=== PATIENT | male | born 1965 | race Caucasian/White ===

== ENCOUNTER → 2020-03-26 08:58 | Outpatient (BNVA) | payer MEDICAID, SELFPAY | PROVIDERS: PCP Internal Medicine; Referring Provider Internal Medicine; Visit Provider Orthopaedic Surgery | DX: M75.41 Impingement syndrome of right shoulder (principal) | CPT/HCPCS: 20610; 99212; J1100 ==

== ENCOUNTER 2020-05-06 09:26 | Outpatient (REF) | payer MEDICAID, SELFPAY ==
--- NOTE | 2020-05-06 09:26 | XR_ITS ---
EXAMINATION: XR ELBOW, LEFT CLINICAL INFORMATION: Left elbow pain COMPARISON: None TECHNIQUE: AP, lateral, and oblique views of the left elbow. FINDINGS: No acute fractures identified. No elbow effusion is seen. Patient is status post instrumentation of what appeared to be a proximal ulnar fracture involving the olecranon. There is some soft tissue swelling seen about the olecranon and proximal ulna. XR/XR elbow LT min 3V IMPRESSION: 1. No acute fracture or effusion of the left elbow. Status post previous instrumentation for fracture. 2. Soft tissue prominence about the olecranon with the appearance of possible olecranon bursitis.
== END 2020-05-06 09:27 | disposition home or self-care (01) ==
LOC: HO.HOSX 09:26
PROVIDERS: Visit Provider Physician Assistant
DX: M70.22 Olecranon bursitis, left elbow (principal)
CPT/HCPCS: 73080; 99212

== ENCOUNTER → 2020-05-25 08:58 | Outpatient (BNVA) | payer MEDICAID, SELFPAY | PROVIDERS: PCP Student in an Organized Health Care Education/Training Program; Visit Provider Physician Assistant | DX: M70.32 Other bursitis of elbow, left elbow (principal); F17.210 Nicotine dependence, cigarettes, uncomplicated; Z96.9 Presence of functional implant, unspecified | CPT/HCPCS: 99212 ==

== ENCOUNTER 2020-06-14 06:02 | Day surgery (SDC) | payer MEDICAID, SELFPAY ==
[2020-06-07 17:04] VITALS: BMI 28.7
--- NOTE | 2020-06-10 15:44 | HO.ANESPROP2 ---
Documented by User: Ethel Almonte 06/10/20 15:45 HPI - Anesthesia Eval Consult details Narrative: 55yo M for Removal Orthopedic Hardware Elbow, Left PMFSH Past Medical History Medical History Arthritis Hypertension Internal derangement of right shoulder Nephrolithiasis Paget's bone disease Partial nontraumatic tear of right rotator cuff Shoulder impingement syndrome Family History Family History Father Melanoma Mother Diabetes Surgical History Surgical History History of arthroscopy of left knee History of elbow surgery History of lithotripsy Social History Social History Alcohol intake: former Smoking Status: Current every day smoker Tobacco Type: Cigarette Packs Per Day: 1 Cigarettes Per Day: 20.0 Years Smoked: 20 Smoked in Last 30 Days: Yes Date Education Initiated: 06/07/20 Use of substances other than those prescribed or required for medical reasons: No Advance Directives: No Advance Directives Information Provided: No Advance Directives on File: No Recently lost weight without trying: No Current occupational status: employed 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 Meds Allergies Allergy/AdvReac Type Severity Reaction Status Date / Time Clindamycin HCl Allergy Severe Rash Uncoded 06/07/20 17:02 penicllin Allergy Severe Rash Uncoded 06/07/20 17:02 Home Medications Medication Instructions Recorded Confirmed Type lisinopril 20 mg tablet 20 mg PO DAILY 03/25/20 06/07/20 History acetaminophen [Tylenol] 650 mg PO Q6H PRN 06/07/20 06/07/20 History Exam Exam Date and Time: June 10, 2020 1544 Height,Weight and Vital Signs: Height 5 ft 10 in Weight 90.718 kg Assessment and Plan Assessment Anesthesia Assessment: Chart Reviewed Documented by User: Suhail Street MD 06/14/20 07:50 PMF Past Medical History Medical History Arthritis Hypertension Internal derangement of right shoulder Nephrolithiasis Paget's bone disease Partial nontraumatic tear of right rotator cuff Shoulder impingement syndrome Family History Family History Father Melanoma Mother Diabetes Surgical History Surgical History History of arthroscopy of left knee History of elbow surgery History of lithotripsy Social History Social History Alcohol intake: former Smoking Status: Current every day smoker Tobacco Type: Cigarette Packs Per Day: 1 Cigarettes Per Day: 20.0 Years Smoked: 20 Smoked in Last 30 Days: Yes Date Education Initiated: 06/07/20 Use of substances other than those prescribed or required for medical reasons: No Advance Directives: No Advance Directives Information Provided: No Advance Directives on File: No Recently lost weight without trying: No Current occupational status: employed 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 Meds Allergies Allergy/AdvReac Type Severity Reaction Status Date / Time Clindamycin HCl Allergy Severe Rash Uncoded 06/07/20 17:02 penicllin Allergy Severe Rash Uncoded 06/07/20 17:02 Home Medications Medication Instructions Recorded Confirmed Type lisinopril 20 mg tablet 20 mg PO DAILY 03/25/20 06/07/20 History acetaminophen [Tylenol] 650 mg PO Q6H PRN 06/07/20 06/07/20 History Exam Airway Mallampati Class: III TM Dist: >3cm Neck ROM: Full Loose/Missing/Broken Teeth: Yes (5 upper teeth ) Heart: RRR Lungs: NL Other: AO Assessment and Plan Assessment Anesthesia Assessment: Anesthesia Plan Discussed and Chart Reviewed Final Anesthetic Review NPO: Yes ASA Class: II Final Preanesthetic Review: No Changes in Pt Med Stat, Meds/Allgs Chart Reviewed, Consent Obtained/Reviewed and Anes Risks/Benef Reviewed Patient Risk: Low Procedure Risk: Low Anesthetic Plan Anesthetic Plan: GA and Regional Block Disposition: Standard PACU
[2020-06-14] VITALS (7 sets, daily range): BP systolic 97–123; BP diastolic 58–73; PULSE 69–87; RESP 12–16; TEMP 36.6; O2SAT 93–98
[2020-06-14] MEDS: ceFAZolin Sodium/Dextrose,Iso 2 GM/50 ML PIGGYBACK IV (06:37)
[2020-06-14] MEDS: Lactated Ringers 1,000 ML 100 ML IVCONT (06:37)
--- NOTE | 2020-06-14 07:31 | FL_ITS ---
EXAMINATION: XR FLUOROSCOPY WITH IMAGES CLINICAL INFORMATION: Hardware removal left elbow COMPARISON: Previous x-ray 05/06/2020 TECHNIQUE: Fluoroscopy performed by Dr. Brock Instrum. Fluoroscopy time: 1.3 seconds DAP: 2062 u davis per centimeter squared Images: 1 FINDINGS: Single lateral view of the elbow. Limited due to light film technique and overlapping structures. No orthopedic hardware seen. FL/FL guidance in OR IMPRESSION: Fluoroscopy guidance for hardware removal
--- NOTE | 2020-06-14 08:03 | MHC.SHP ---
Pre-Procedural Eval Section A The patient is an INPATIENT: No Changes since office visit: No Cold of Flu in the past 2 weeks, No New Medical Problems, No Changes in Medication and No Patient answered all questions The History & Physical has been completed within 30 days and I have reviewed it.: Yes Section B Chief Complaint: Presense of functional implant Allergies: Allergies Allergy/AdvReac Type Severity Reaction Status Date / Time Clindamycin HCl Allergy Severe Rash Uncoded 06/07/20 17:02 penicllin Allergy Severe Rash Uncoded 06/07/20 17:02 Plan I have reviewed the history and physical and performed a pertinent physical examination on my patient. No changes have occurred unless specified.
--- NOTE | 2020-06-14 08:33 | PM.PRCOR ---
Brief Operative Note Date of procedure: 06/14/20 Pre-op diagnosis: painful hardware left elbow Post-op diagnosis: same Procedure: REMOVAL HARWARE LEFT ELBOW Surgeon: Delmy Banks Estimated blood loss (mL): 0 Condition: stable Disposition: PACU
--- NOTE | 2020-06-14 09:40 | OP_ITS ---
SURGEON: Delmy Banks MD PREOPERATIVE DIAGNOSIS: Painful hardware of left elbow/olecranon. POSTOPERATIVE DIAGNOSIS: Painful hardware of left elbow/olecranon. PROCEDURE PERFORMED: Removal of hardware of left olecranon. ESTIMATED BLOOD LOSS: COMPLICATIONS: ANESTHESIA: ASSISTANTS: SPECIMENS: CLINICAL NOTE: This gentleman has had ongoing problems with his elbow for many years. He had olecranon fracture that was treated many years ago elsewhere. He actually developed a nonunion. He has had hardware that has been partially removed and left some, and he has had recurrent olecranon bursitis. Therefore, after explaining the risks, benefits, alternatives and answering all his questions, it was mutually agreed upon to carry out the following procedure. DESCRIPTION OF PROCEDURE: Under a general anesthetic, the patient was placed in the supine position in the operating table. Pneumatic tourniquet cuff was placed around the upper left arm but was not inflated. The left arm was then prepped and draped in standard fashion. Surgical time-out was then performed. The patient was identified, procedure confirmed, site confirmed. Medical analogy and history reviewed. Preoperative antibiotics given. Standard DVT prophylaxis in place. All other items were discussed and agreed upon. Following the old incision, it was taken down through subcutaneous tissues. Hemostasis was achieved along the way using electrocautery. It was divided down onto the subcutaneous port of the olecranon. The [id number] wire was identified as well as the two ends. It was dissected to the transverse portion through the bone and then the wire was successfully removed. Following this, the retained small fragment was found and the soft tissues was then removed. The mini C-arm was used just to confirm all the hardware is gone and we proceeded the closure. Wound was irrigated. The deep tissue approximated using interrupted 2-0 Dexon. Skin approximated using interrupted 2-0 Dexon. Skin was closed with vincenzo. Sterile dressing was then applied. The patient's anesthesia was then reversed and transferred supine to the room bed and taken to the recovery room in good condition. Intraoperatively, there was no blood loss. No complications. COMMERCIAL PLUMBER: LEAH Bauer. Delmy Banks MD KKI/ANGELINAL / [id number]
--- NOTE | 2020-06-14 09:59 | HO.POSTANES ---
Post Anesthesia Evaluation Post Anesthesia Evaluation Vital Signs: Vital Signs Temp Pulse Resp BP Pulse Ox 06/14/20 09:36 87 16 100/73 95 06/14/20 09:22 72 16 110/65 95 06/14/20 09:12 75 16 107/66 94 06/14/20 09:01 84 16 103/68 94 06/14/20 08:56 75 16 97/60 93 06/14/20 08:51 98 F 86 12 100/58 L 97 06/14/20 06:27 97.9 F 69 16 123/72 98 Anesthesia: General LMA Mental Status: Awake Pain Control: Satisfactory Nausea/Vomiting: None Hydration: Adequate Anesthesia-Related Issues: No Anes. Related Issues
== END 2020-06-14 10:11 | disposition home or self-care (01) ==
PROVIDERS: PCP Internal Medicine; Visit Provider Orthopaedic Surgery
PROC: (CPT 20680; principal; 2020-06-14 07:50)
DX: T84.84XA Pain due to internal orthopedic prosthetic devices, implants and grafts, initial encounter (principal); M25.422 Effusion, left elbow; M70.22 Olecranon bursitis, left elbow; M88.9 Osteitis deformans of unspecified bone; I10 Essential (primary) hypertension; F17.210 Nicotine dependence, cigarettes, uncomplicated
CPT/HCPCS: 20680; J0690; J1100; J2250; J2405; J3010

== ENCOUNTER → 2020-06-25 10:30 | Outpatient (BNVA) | payer MEDICAID, SELFPAY | PROVIDERS: PCP Internal Medicine; Visit Provider Physician Assistant | DX: Z98.890 Other specified postprocedural states (principal) | CPT/HCPCS: 99212 ==

== ENCOUNTER → 2020-07-05 13:11 | Outpatient (BNVA) | payer MEDICAID, SELFPAY | PROVIDERS: PCP Internal Medicine; Visit Provider Physician Assistant | DX: M70.22 Olecranon bursitis, left elbow (principal) | CPT/HCPCS: 99212 ==

== ENCOUNTER 2020-09-13 09:21 | Outpatient (REF) | payer MEDICAID, SELFPAY ==
--- NOTE | ~2020-09-13 | US_ITS ---
EXAMINATION: US RETROPERITONEAL LIMITED (RENAL ONLY) CLINICAL INFORMATION: Nephrolithiasis. COMPARISON: Ultrasound renal swelling 08/14/2019 and 08/05/2018 TECHNIQUE: Real-time imaging of the kidneys. FINDINGS: RIGHT KIDNEY: 11.1 x 6.1 x 5.2 cm (SAG x AP x TRV). The kidney is normal in size, contour, and echogenicity. Renal cortical thickness is normal. There is mild hydronephrosis. There are 2 stones measuring 3 mm in the mid lower pole. There are 2 small cysts measuring 5 mm and 4 mm in the lower and midpole. No renal mass. LEFT KIDNEY: 12.2 x 5.9 x 5.8 cm (SAG x AP x TRV). The kidney is normal in size, contour, and echogenicity. Renal cortical thickness is normal. There is moderate left hydronephrosis. There is dilatation of the visualized left proximal ureter. There are 3 stones in the mid and lower pole measuring 2 mm. No renal mass. Bilateral ureteral jets are seen in the bladder. US/US renal BI IMPRESSION: Bilateral hydronephrosis, left greater than right. This is increased from August 2019 exam. Bilateral renal stones. Small right renal cysts.
== END 2020-09-13 09:22 | disposition home or self-care (01) ==
LOC: HO.US 09:21
PROVIDERS: PCP Internal Medicine; Visit Provider Urology
DX: N20.0 Calculus of kidney (principal)
CPT/HCPCS: 76775

== ENCOUNTER → 2020-09-16 15:10 | Outpatient (BNVA) | payer MEDICAID, SELFPAY | PROVIDERS: PCP Internal Medicine; Visit Provider Urology ==

== ENCOUNTER 2022-07-25 07:34 | Outpatient (REF) | payer MEDICAID, SELFPAY ==
--- NOTE | ~2022-07-25 | US_ITS ---
EXAMINATION: US RETROPERITONEAL LIMITED (RENAL ONLY) CLINICAL INFORMATION: Calculus of kidney. COMPARISON: Ultrasound retroperitoneal limited (renal only) 09/13/2020 and 08/14/2019. TECHNIQUE: Real-time imaging of the kidneys. FINDINGS: RIGHT KIDNEY: 10.6 x 6.2 x 5.2 cm (SAG x AP x TRV). The kidney is normal in size, contour, and echogenicity. Renal cortical thickness is normal. There is mild right-sided hydronephrosis present with a prominent proximal ureter seen measuring 5 mm. There are nonobstructing renal calculi seen measuring 2 mm at the lower pole and 4 mm in the mid kidney. Some benign subcentimeter cysts are present which need no additional imaging or follow up. LEFT KIDNEY: 11.8 x 6.1 x 5.1 cm (SAG x AP x TRV). The kidney is normal in size, contour, and echogenicity. Renal cortical thickness is normal. A benign subcentimeter lower pole cyst is present which needs no additional imaging or follow up. There are nonobstructing mid and lower pole calculi seen measuring 4 and 3 mm respectively. No left-sided hydronephrosis. BLADDER: Bilateral ureteral jets are demonstrated. US/US renal BI IMPRESSION: 1. Mild right-sided hydronephrosis with prominent proximal ureter. 2. Bilateral nonobstructing renal calculi.
== END 2022-07-25 07:35 | disposition home or self-care (01) ==
LOC: HO.US 07:34
PROVIDERS: PCP Internal Medicine; Visit Provider Urology
DX: N20.0 Calculus of kidney (principal)
CPT/HCPCS: 76775

== ENCOUNTER → 2022-08-15 15:05 | Outpatient (BNVA) | payer MEDICAID, SELFPAY | PROVIDERS: PCP Internal Medicine; Visit Provider Urology | DX: N20.0 Calculus of kidney (principal) | CPT/HCPCS: 99212 ==

== ENCOUNTER → 2022-09-11 07:49 | Outpatient (BNVA) | payer MEDICAID, SELFPAY | PROVIDERS: PCP Internal Medicine; Referring Provider Internal Medicine; Visit Provider Physician Assistant | DX: Z12.11 Encounter for screening for malignant neoplasm of colon (principal) | CPT/HCPCS: 99202 ==

== ENCOUNTER 2023-01-26 07:25 | Outpatient (REF) | payer MEDICAID, SELFPAY ==
--- NOTE | ~2023-01-26 | XR_ITS ---
EXAMINATION: XR HAND, RIGHT CLINICAL INFORMATION: Pain. COMPARISON: None available. TECHNIQUE: PA, lateral, and oblique views of the right hand. FINDINGS: The bones and soft tissues are normal. No fracture. Alignment is anatomic. Joint spaces are maintained. No erosions or soft tissue calcifications. XR/XR hand RT min 3V IMPRESSION: Normal right hand.
--- NOTE | ~2023-01-26 | XR_ITS ---
EXAMINATION: XR KNEE, RIGHT CLINICAL INFORMATION: Pain. COMPARISON: None available. TECHNIQUE: 3 views of the right knee. FINDINGS: The bone mineralization is normal. There is mild medial knee degenerative change with mild loss of joint space and mild osteophyte formation. There is no fracture. There is no joint effusion. The soft tissues are unremarkable. XR/XR knee RT 3V IMPRESSION: Mild medial knee degenerative change. No acute osseous abnormality or joint effusion.
--- NOTE | ~2023-01-26 | XR_ITS ---
EXAMINATION: XR SHOULDER, LEFT CLINICAL INFORMATION: Pain. COMPARISON: Radiographs dated 02/11/2018. TECHNIQUE: AP external rotation, Grashey, scapular Y, and axillary views of the left shoulder. FINDINGS: Bony alignment and mineralization are normal. The glenohumeral joint is intact. There is interim appearance of a tiny loose body or minimal avulsion fragment at the lower left glenoid margin. The acromioclavicular and coracoclavicular intervals are normal. No dislocation is seen. There is no soft tissue calcification or foreign body. No left pneumothorax is seen. XR/XR shoulder LT min 2V IMPRESSION: 1. A tiny loose body or minimal avulsion fragment is newly seen adjacent to the lower left glenoid margin. 2. No dislocation is seen.
--- NOTE | ~2023-01-26 | XR_ITS ---
EXAMINATION: XR KNEE, LEFT CLINICAL INFORMATION: Chronic pain. COMPARISON: Radiographs dated 06/06/2017. TECHNIQUE: AP and lateral views of the left knee. FINDINGS: Bony alignment and mineralization are normal. The lateral, medial and patellofemoral joint space compartment are well-maintained. There is mild peripheral osteophyte formation of the patellofemoral compartment. There is no fracture, dislocation or joint effusion. No foreign body is seen. There are atherosclerotic calcifications. XR/XR knee LT 2V IMPRESSION: 1. No fracture, dislocation or joint effusion is seen. 2. There is mild osteoarthritic change of the left patellofemoral compartment.
== END 2023-01-26 07:26 | disposition home or self-care (01) ==
LOC: HO.XRAY 07:25
PROVIDERS: PCP Internal Medicine; Visit Provider Internal Medicine
DX: M25.562 Pain in left knee (principal); M25.561 Pain in right knee; M25.512 Pain in left shoulder; M79.641 Pain in right hand; G89.29 Other chronic pain
CPT/HCPCS: 73030; 73130; 73560; 73562

== ENCOUNTER 2023-01-29 09:44 | Outpatient (REF) | payer MEDICAID, SELFPAY ==
--- NOTE | ~2023-01-29 | US_ITS ---
EXAMINATION: US RETROPERITONEAL LIMITED (RENAL ONLY) CLINICAL INFORMATION: Calculus of kidney. COMPARISON: Ultrasound retroperitoneal limited (renal only) 07/25/2022 and 09/13/2020. TECHNIQUE: Real-time imaging of the kidneys. Limited visualization due to bowel gas. FINDINGS: RIGHT KIDNEY: 11.4 x 7.0 x 5.1 cm (SAG x AP x TRV). Multiple renal calculi, largest 4 are midpole and each measures 0.4 cm. Mild right hydronephrosis. There is a 0.7 cm lower pole cyst with benign features. There is no indication for follow up imaging. Renal cortical thickness is normal. Limited visualization. LEFT KIDNEY: 12.1 x 6.1 x 4.7 cm (SAG x AP x TRV). Multiple renal calculi, largest midpole 0.5 cm. Mild left hydronephrosis. Lateral lower pole 0.4 cm cyst. There is no indication for follow up imaging. Renal cortical thickness is normal. Limited visualization. ADDITIONAL FINDINGS: Bilateral ureteral jets were identified on limited views of the bladder. US/US renal BI IMPRESSION: Mild bilateral hydronephrosis. Multiple bilateral renal calculi. Bilateral ureteral jets were identified on limited views of the bladder..
== END 2023-01-29 09:45 | disposition home or self-care (01) ==
LOC: HO.US 09:44
PROVIDERS: PCP Internal Medicine; Visit Provider Urology
DX: N20.0 Calculus of kidney (principal)
CPT/HCPCS: 76775

== ENCOUNTER 2023-02-23 08:28 | Outpatient (AMB) | payer MEDICAID, SELFPAY ==
--- NOTE | 2023-02-23 08:34 | MHC.OFFVIS ---
Intake Intake Visit Reasons: 6m/US(set) Intake Note: Patient presents today for a follow-up on US Results: Meds- None Allergies to Antibiotic- No Known Allergies Blood Thinner- None Allergies Clindamycin HCl Allergy (Severe, Uncoded 02/23/23 08:43) Rash penicllin Allergy (Severe, Uncoded 02/23/23 08:43) Rash Medication List - Last Reconciled 02/23/23 by Chris Bradford MD bisacodyl (Dulcolax (bisacodyl)) 10 mg (2 x 5 mg) PO ONCE 1 day ibuprofen 800 mg PO Q8H lisinopril 20 mg PO DAILY polyethylene glycol 3350 (Miralax) 238 grams PO ONCE PRN 1 day HPI HPI Comments History of Present Illness Details Russ Tran is a very pleasant male. He is a patient of Dr Khan. He is seen for the following urologic conditions. - nephrolithiasis Repeat imaging in 6 months - does have mild hydro but no prior issues with drainage previously Six month follow-up CT scan with PSA Minimal pain Nephrolithiasis/Urolithiasis: They are here for further evaluation of nephrolithiasis - minimal stones. Urolithiasis was diagnosed 2009. The patient previously had kidney stones whose composition w unknown. Laboratory investigations include no recent labs. 24 Hour urine evaluation none on file. Prior treatment(s) include PCNL right side in past 08/21 vitamin B6. Prior imaging includes 02/19 , a renal ultrasound, showing radiodense stone(s), on the right - 3mm x3 08/20 , a renal ultrasound, right multiple 3-4mm stones 08/21 , a renal ultrasound bilateral 3mm stones 08/21 renal Lasix scan with no evidence of obstruction 09/22 - renal ultrasound bilateral hydronephrosis noted with small stones on right side 3 mm - 07/27 - renal ultrasound right mild hydro with small stones - 01/24 renal ultrasound bilateral small stones up to 5 mm, mild bilateral hydro, likely physiologic Current therapeutic plan will be to continue with imaging surveillance. 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 Review of Systems Const Denies chills and Denies fever(s) Card Reports no additional complaints and Denies syncope Resp Denies cough GI Denies abdominal pain and Denies heartburn Reports as per HPI and Denies change in libido Neuro Denies syncope Psych Denies change in libido Endo Denies change in libido Physical Exam Const General: cooperative, healthy appearing, comfortable and no acute distress Orientation/consciousness: patient oriented x3 HEENT Face and sinus: Yes normal facial exam Mouth: moist mucous membranes Neck Neck: Yes normal visual inspection, Yes full ROM and Yes trachea midline Chest Chest palpation & inspection: normal inspection of the chest Resp Effort & Inspection: normal respiratory effort, able to speak in complete sentences and no respiratory distress GI Inspection: Yes normal to inspection Back/Spine/Pelvis Cervical Spine: normal cervical lordosis Thoracic/Lumbar Spine: thoracic and lumbar spine normal to inspection Skin General skin exam: no rashes or lesions noted Neuro General: patient oriented x3, gait normal, tone normal and moves all extremities Extrem General: Yes normal to inspection and Yes capillary refill normal Results AMB Urinalysis, Automated UA Leukoctes 0 Tulio/uL Last Edit by SALOME Baker on 02/23/23 08:45 UA Nitrite Negative Last Edit by SALOME Baker on 02/23/23 08:45 UA Urobilinogen 0.2 mg/dL Last Edit by SALOME Baker on 02/23/23 08:45 UA Protein 0 mg/dL Last Edit by SALOME Baker on 02/23/23 08:45 UA pH 6.0 Last Edit by SALOME Baker on 02/23/23 08:45 UA Blood 0 Tio/uL Last Edit by SALOME Baker on 02/23/23 08:45 UA Specific [place] 1.010 Last Edit by SALOME Baker on 02/23/23 08:45 UA Ketone Negative Last Edit by SALOME Baker on 02/23/23 08:45 UA Bilirubin 0 mg/dL Last Edit by SALOME Baker on 02/23/23 08:45 UA Glucose 0 mg/dL Last Edit by Cindy Anton SALOME on 02/23/23 08:45 Assessment & Plan Assessment & Plan (1) Nephrolithiasis: Code(s): N20.0 - Calculus of kidney Plan Six month follow-up CT Orders: Orders Prostate Specific Antigen 6 Months N20.0 - Calculus of kidney CT abdomen wo IV con 6 Months N20.0 - Calculus of kidney AMB Urinalysis Automated Today Z13.9 - Encounter for screening, unspecified Patient Instructions: Imaging studies, laboratory and physical exam results were discussed and reviewed in detail. No major barriers to patient understanding were identified. An opportunity to ask questions regarding the treatment plan was provided. All questions were answered. The patient expressed understanding and agreement with the above treatment plan. The patient is aware they should contact our office by phone for worsening of their current condition or the appearance of new urologic symptoms. Compliance is encouraged with any medications and followup testing that is ordered. It is a privilege to participate in the urologic care of your patient. If you have any questions or concerns regarding treatment for the above conditions, or other urologic issues, please do not hesitate to contact me. The office telephone contact is [phone]. This note is constructed using voice recognition software. While every effort has been made to ensure accuracy lab clerk errors may have been included. Yours sincerely, Dr Chris Bradford MD, [facility] - Urology Providers of Expert, Compassionate Care for the Genitourinary System Coding Level of Care Code Est Pt Level 3 (38558) Diagnoses Nephrolithiasis N20.0
== END 2023-02-23 09:00 | disposition home or self-care (01) ==
PROVIDERS: PCP Internal Medicine; Visit Provider Urology
DX: N20.0 Calculus of kidney (principal); Z13.9 Encounter for screening, unspecified
CPT/HCPCS: 99213

== ENCOUNTER → 2023-02-23 08:28 | Outpatient (BNVA) | payer MEDICAID, SELFPAY | PROVIDERS: Visit Provider Urology | DX: N20.0 Calculus of kidney (principal) | CPT/HCPCS: 81003; 99212 ==

== ENCOUNTER 2023-06-13 10:55 | Emergency (ER) | payer MEDICAID, SELFPAY ==
--- NOTE | ~2023-06-13 | XR_ITS ---
EXAMINATION: XR SHOULDER, LEFT CLINICAL INFORMATION: Shoulder pain COMPARISON: Left shoulder 01/26/2023 TECHNIQUE: Three views of the left shoulder. FINDINGS: Again seen are some mild degenerative changes in the left shoulder joint with some minimal glenoid sclerosis and some mild osteophyte formation at the inferior glenoid. Tiny ossified fragment seen at the inferior edge of the glenoid probably represents an osteophyte and not a intraosseous free body as this is not changed in position at all. XR/XR shoulder LT min 2V IMPRESSION: Mild degenerative changes in the left shoulder.
[2023-06-13 11:01] VITALS: BP 142/90; PULSE 88; O2SAT 98
[2023-06-13 11:37] VITALS: BP 133/81; PULSE 91; RESP 19; TEMP 36.6; O2SAT 98; BMI 28.0
[2023-06-13 14:54] LABS: Ethanol < 10 mg/dL
[2023-06-13 16:40] VITALS: BP 130/70; PULSE 88; RESP 16; TEMP 36.6; O2SAT 98
--- NOTE | 2023-06-13 16:40 | PC.NURSE ---
declined recheck of vs- pt requesting to leave- nat zavaleta saw pt- ordering pain meds and d.c. instructions to come. walking w/o issue. no resp distress.
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
[2023-06-13] MEDS: Ketorolac Tromethamine 60 MG/2 ML VIAL IM (17:00)
== END 2023-06-13 17:00 | disposition home or self-care (01) ==
PROVIDERS: Emergency Provider Emergency Medicine
DX: Z04.1 Encounter for examination and observation following transport accident (principal); M25.512 Pain in left shoulder; I10 Essential (primary) hypertension; Z79.899 Other long term (current) drug therapy
CPT/HCPCS: 36415; 73030; 80307; 96372; 99284; J1885

== ENCOUNTER 2023-07-09 09:36 | Outpatient (AMB) | payer MEDICAID, SELFPAY ==
--- NOTE | 2023-07-09 09:38 | MHC.OFFVIS ---
Intake Vital Signs 07/09/23 09:50 Height 5 ft 10 in Weight 195 lb BMI 28.0 Intake Visit Reasons: Newprob-Left shoulder arthritis Intake Note: Russ a 58 year old male presents today for an evaluation of left shoulder. Patient reports left shoulder pain for the past 6 months and is requesting to have a cortisone injection. He states pain comes with lifting his arm above his head. Finds some relief with Tylenol and Motrin. Hx of right shoulder injections, that provides him with relief. Allergies Clindamycin HCl Allergy (Severe, Uncoded 07/09/23 09:52) Rash penicllin Allergy (Severe, Uncoded 07/09/23 09:52) Rash Medication List - Last Reconciled 07/09/23 by LEAH Bauer-Anum acetaminophen ER 650 mg PO Q8H amlodipine 5 mg PO QAM bisacodyl (Dulcolax (bisacodyl)) 10 mg (2 x 5 mg) PO ONCE 1 day diclofenac potassium 50 mg PO Q12H PRN hydrochlorothiazide 12.5 mg PO QAM ibuprofen 800 mg PO Q8H lisinopril 20 mg PO DAILY melatonin 5 mg PO BEDTIME polyethylene glycol 3350 (Miralax) 238 grams PO ONCE PRN 1 day prednisone 50 mg PO DAILY 5 days HPI Newprob-Left shoulder arthritis HPI Details 58-year-old male who presents to the office today for evaluation of left shoulder pain for 6 months. He states he has pain in his left shoulder which comes with lifting his arm overhead. He finds mild relief with Tylenol and Motrin. He is interested in having a cortisone injection. He has a history of right shoulder injection with benefits. [facility] Medical History Arthritis Hypertension Shoulder impingement syndrome Nephrolithiasis Partial nontraumatic tear of right rotator cuff Internal derangement of right shoulder Paget's bone disease Surgical History History of elbow surgery History of lithotripsy History of arthroscopy of left knee Family History Father Melanoma Mother Diabetes Social History Unable to assess alcohol history related to: Refusing to respond Alcohol intake: former Cigarette Packs Per Day: 1 Cigarettes Per Day: 20.0 Years Smoked: 20 Current occupational status: employed 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 Tenderness over the bicipital groove and along the deltoid region of the shoulder. Forward flexion to 175 and internal rotation to S1. Weakness with external rotation against resistance with compensation. 5/5 RTC strength. Negative Vera and cross body abduction. NVI. Office Procedures Joint Injection/Drain Joint Injection/Drain Primary Site: left shoulder Prep: site was prepped using aseptic technique, ethochloride spray was applied and injection warnings given Injected: 80 mg of, DepoMedrol, with 8 mL of, 1% plain lidocaine and in the subcromial space Approach Used: posterolateral Procedure: The patient tolerated the procedure well and there was some relief with the local anesthesia Coding 83461 - Glenohumeral/Tronchanteric Bursa/Intraarticular Procedure code (CPT) selection complete Results Reviewed Results Reviewed: xrays of the left shoulder obtained on 06/13/23 show type 2 acromion Assessment & Plan Assessment & Plan (1) Impingement syndrome, shoulder, left: Code(s): M75.42 - Impingement syndrome of left shoulder Plan We discussed options today which include steroid injection. They did consent to move forward with the left shoulder injection, which was tolerated well. I recommended rest, ice and elevation and OTC anti-inflammatories PRN for discomfort. If symptoms persist or worsens over the next 6-8 weeks, patient will contact the office, otherwise follow-up as needed. Patient Instructions: Scribed for Chela Pacheco PA-C, by Nathan Woodson biomedical engineering director, on 07/09/2023 at 9:15 AM JOVITA. Chela Madrid PA-C, have personally reviewed and agree with the information entered by the scribe. Coding Level of Care Code Est Pt Level 3 (04832) Diagnoses Impingement syndrome, shoulder, left M75.42 CPT Codes Coding - Joint 7: 58750 - Glenohumeral/Tronchanteric Bursa/Intraarticular ([id number])
[2023-07-09 09:50] VITALS: BMI 28.0
== END 2023-07-09 10:15 | disposition home or self-care (01) ==
PROVIDERS: Visit Provider Physician Assistant
DX: M75.42 Impingement syndrome of left shoulder (principal)
CPT/HCPCS: 20610; 99213

== ENCOUNTER → 2023-07-09 09:36 | Outpatient (BNVA) | payer MEDICAID, SELFPAY | PROVIDERS: Visit Provider Physician Assistant | DX: M75.42 Impingement syndrome of left shoulder (principal) | CPT/HCPCS: 20610; 99212; J1040 ==

== ENCOUNTER 2023-08-23 11:14 | Outpatient (REF) | payer MEDICAID, SELFPAY ==
--- NOTE | ~2023-08-23 | XR_ITS ---
EXAMINATION: XR SHOULDER, RIGHT CLINICAL INFORMATION: Right shoulder pain COMPARISON: None available. TECHNIQUE: AP external rotation, Grashey, scapular Y, and axillary views of the right shoulder. FINDINGS: There is mild cephalad migration of the right humeral head and spurring of the acromion and acromioclavicular joint. Findings suggestive of rotator cuff tear. There is no fractures or subluxations seen. Soft tissue calcifications not seen. XR/XR shoulder RT min 2V IMPRESSION: Mild cephalad migration of the humeral head and AC joint degenerative changes.
--- NOTE | ~2023-08-23 | XR_ITS ---
EXAMINATION: XR SHOULDER, LEFT CLINICAL INFORMATION: Left shoulder pain COMPARISON: None available. TECHNIQUE: AP external rotation, Grashey, scapular Y, and axillary views of the left shoulder. FINDINGS: There is no evidence of fracture or dislocation. There are calcifications adjacent to the inferior margin of the glenoid most likely due to degenerative spurring, seen on the previous study AC joint is unremarkable. XR/XR shoulder LT min 2V IMPRESSION: Soft tissue calcification adjacent to the inferior glenoid
[2023-08-23 11:36] LABS: MANUAL DIFF FLAG NO
[2023-08-23 12:10] LABS: Basophils Percent Auto 0.5 % (0-2); Eosinophils Absolute Auto 0.1 X10*3/uL (0.0-0.4); Eosinophils Percent Auto 0.8 % (0-4); Hematocrit 32.6 % (42.0-52.0); Imm Gran Abs Auto 0.02 X10*3/uL (0.00-0.03); Imm Gran Pct Auto 0.3 % (0.0-0.4); Lymphocytes Absolute Auto 2.3 X10*3/uL (1.2-4.9); Lymphocytes Percent Auto 29.7 % (20-40); Mean Corpuscular HGB Conc 33.7 g/dl (31.0-36.0); Mean Corpuscular Hemoglobin 27.2 pg (27.0-33.0); Mean Corpuscular Volume 80.7 fL (80.0-98.0); Mean Platelet Volume 10.4 fL (9.4-12.4); Monocytes Absolute Auto 0.6 X10*3/uL (0.1-1.2); Monocytes Percent Auto 7.5 % (2-11); Neutrophils Absolute Auto 4.8 x10*3/uL (2.0-8.3); Neutrophils Percent Auto 61.2 % (45-73); Platelet Count 256 X10*3/uL (160-400); Red Blood Count 4.04 X10*6/uL (4.60-5.80); Red Cell Distribution Width 12.6 % (11.0-16.0); White Blood Count 7.9 X10*3/uL (4.8-10.8)
[2023-08-23 12:46] LABS: Anion Gap 13 (12-20); Blood Urea Nitrogen 24 mg/dL (9-16); Calcium 9.9 mg/dL (8.4-10.2); Carbon Dioxide 25 mmol/L (22-29); Chloride 98 mmol/L (96-108); Estimated Glomerular Filt Rate > 60; Glucose Random 100 mg/dL (60-115); Potassium 4.3 mmol/L (3.3-5.1); Sodium 132 mmol/L (135-145)
[2023-08-23 13:01] LABS: Prostate Specific Antigen 1.23 ng/mL (<0.05-4.0)
[2023-08-23 13:06] LABS: TSH reflex Free T4 0.42 uIU/mL (0.32-4.0); Vitamin D 25-OH Total 48.7 ng/mL (>30)
[2023-08-23 13:15] LABS: Folate > 20.0 ng/mL (> or = 4.0); Vitamin B12 1183 pg/mL (200-900)
[2023-08-24 08:59] LABS: HIV AB/AG Nonreactive (Nonreactive); HIV Num 1 0.06 S/CO (0.00-0.99)
[2023-08-26 11:04] LABS: RPR Rapid Plasma Reagin NON-REACTIVE (NON-REACTIVE)
== END 2023-08-23 11:15 | disposition home or self-care (01) ==
LOC: HO.XRAY 11:14
PROVIDERS: PCP Internal Medicine; Visit Provider Urology
DX: M25.511 Pain in right shoulder (principal); M25.512 Pain in left shoulder; F41.9 Anxiety disorder, unspecified; F32.A Depression, unspecified; R41.3 Other amnesia; N20.0 Calculus of kidney; G89.29 Other chronic pain; Z11.4 Encounter for screening for human immunodeficiency virus [HIV]; Z11.3 Encounter for screening for infections with a predominantly sexual mode of transmission; Z12.5 Encounter for screening for malignant neoplasm of prostate
CPT/HCPCS: 36415; 73030; 80048; 82306; 82607; 82746; 84153; 84443; 85025; 86592; 87389

== ENCOUNTER 2023-09-18 13:57 | Outpatient (REF) | payer MEDICAID, SELFPAY ==
[2023-09-20 13:29] LABS: RPR Rapid Plasma Reagin NON-REACTIVE (NON-REACTIVE)
== END 2023-09-18 13:58 | disposition home or self-care (01) ==
LOC: HO.CHCLDS 13:57
PROVIDERS: Visit Provider Internal Medicine
DX: Z87.898 Personal history of other specified conditions (principal)
CPT/HCPCS: 36415; 86592

== ENCOUNTER 2023-10-02 19:36 | Outpatient (REF) | payer MEDICAID, SELFPAY ==
--- NOTE | ~2023-10-02 | MR_ITS ---
EXAMINATION: MR BRAIN WITHOUT CONTRAST CLINICAL INFORMATION: Worsening memory. COMPARISON: None. TECHNIQUE: Multiplanar, multisequence imaging of the brain was performed without contrast. FINDINGS: No diffusion abnormalities are identified to suggest an acute infarct. The ventricles are normal in size. No mass effect or midline shift is seen. Generalized brain parenchymal volume loss noted with commensurate ex vacuo prominence of the ventricles. Very mild scattered white matter signal changes may be due to chronic microangiopathy. No extra-axial fluid collections are seen. The brainstem and cerebellum are normal. No hippocampal pathology evident. The gradient refocused acquisition demonstrates no pathologic magnetic susceptibility artifact to indicate underlying acute or chronic blood products. The craniovertebral junction, marrow signal, and midline structures are normal. The major intracranial flow voids at the level of the [place] are preserved. The dural venous sinus flow voids are maintained. The mastoid air cells are well aerated. Mild ethmoid sinus mucosal thickening noted. MR/MR head/brain wo con IMPRESSION: No acute process. Generalized brain parenchymal volume loss with mild scattered white matter signal changes, which may be due to chronic microangiopathy.
== END 2023-10-02 19:37 | disposition home or self-care (01) ==
LOC: HO.MRI 19:36
PROVIDERS: PCP Internal Medicine; Visit Provider Internal Medicine
DX: Z87.898 Personal history of other specified conditions (principal)
CPT/HCPCS: 70551

== ENCOUNTER 2024-04-08 13:20 | Inpatient (IN) | payer MEDICAID, OTHER, SELFPAY ==
--- NOTE | ~2024-04-08 | MR_ITS ---
EXAMINATION: MRI brain. CLINICAL INFORMATION: Worsening memory, rule out Korsakoff psychosis. COMPARISON: MRI brain on 09/22/2023 TECHNIQUE: Examination was performed in a high field strength MRI scanner. Multiplanar multisequence MR imaging of the brain was performed without IV contrast enhancement. . Additional high-resolution anatomic imaging was performed through the brain and images were submitted for post processing including auto-segmentation and volumetric analysis. FINDINGS: Ventricles, sulci and cisterns are prominent. No focal cerebral, brainstem or cerebellar lesions with abnormal signal can be seen. Diffusion weighted images show no abnormal regional decrease in diffusion. Normal flow voids of major intracerebral blood vessels are seen in the visualized portion. Baseline NeuroQuant volumetric assessment of the hippocampi was subsequently performed. Quantitative hippocampal volumes are estimated at an age-adjusted normative percentile of 7%. Superior Lateral ventricular size is estimated at a normative percentile rank of 83%, and the inferior lateral ventricles are estimated at 94 %. The pituitary gland is normal. Optic chiasm is not displaced. Cerebellar tonsils position is normal. MR/MR brain wo con w neuroquant IMPRESSION: 1. Unchanged mild age related cerebral atrophy. 2. No acute cerebral infarction is seen. 3. No evidence of space occupying mass lesion could be found. 4. No evidence of intracranial hemorrhage. 5. Quantitative analysis shows low hippocampal volume, low hippocampal occupancy and relatively high volume at superior and inferior lateral ventricles, suggestive of global ex vacuo dilatation, supports neurodegenerative etiology, but may not be specific for mesial temporal lobe focused disease. Electronically signed by: Arnaldo Montoya MD 04/14/2024 10:20 AM JOVITA
[2024-04-08 13:32] VITALS: BP 117/72; BP 130/96; PULSE 62; PULSE 93; RESP 14; TEMP 36.6; O2SAT 100; O2SAT 99
[2024-04-08 13:38] VITALS: BP 117/72; PULSE 93; RESP 14; TEMP 36.6; O2SAT 99; BMI 27.3
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
--- NOTE | 2024-04-08 13:59 | MHC.CARE ---
This instructional writer reached out to Terry Meeks MD who signed section 12 on pt. Section 12 did not allude to any details about pt's presentation and more clarification is needed. Woven Label Designer took information down, awaiting a call back from office.
[2024-04-08 14:10] LABS: MANUAL DIFF FLAG NO
[2024-04-08 14:12] LABS: Basophils Absolute Auto 0.1 X10*3/uL (0.0-0.2); Basophils Percent Auto 0.6 % (0-2); Eosinophils Absolute Auto 0.1 X10*3/uL (0.0-0.4); Eosinophils Percent Auto 0.8 % (0-4); Hemoglobin 12.1 g/dl (14.0-18.0); Imm Gran Abs Auto 0.03 X10*3/uL (0.00-0.03); Imm Gran Pct Auto 0.3 % (0.0-0.4); Lymphocytes Absolute Auto 3.2 X10*3/uL (1.2-4.9); Lymphocytes Percent Auto 36.3 % (20-40); Mean Corpuscular HGB Conc 33.6 g/dl (31.0-36.0); Mean Corpuscular Hemoglobin 26.9 pg (27.0-33.0); Mean Corpuscular Volume 80.2 fL (80.0-98.0); Mean Platelet Volume 9.8 fL (9.4-12.4); Monocytes Absolute Auto 0.6 X10*3/uL (0.1-1.2); Neutrophils Absolute Auto 4.8 x10*3/uL (2.0-8.3); Platelet Count 260 X10*3/uL (160-400); Red Blood Count 4.49 X10*6/uL (4.60-5.80); Red Cell Distribution Width 12.8 % (11.0-16.0); White Blood Count 8.8 X10*3/uL (4.8-10.8)
[2024-04-08 14:24] LABS: IDNOW Serial# 152EDE1D
[2024-04-08 14:25] LABS: COVID-19 Test Negative (Negative)
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
[2024-04-08 14:39] LABS: Acetaminophen LAB < 3 mcg/mL (<30); Alanine Aminotransferase 36 U/L (0-40); Albumin Level 4.7 g/dL (3.5-5.0); Alkaline Phosphatase 64 U/L (39-117); Anion Gap 14 (12-20); Aspartate Amino Transferase 29 U/L (5-37); Bilirubin Total 0.4 mg/dL (0.0-1.0); Blood Urea Nitrogen 32 mg/dL (9-16); Calcium 10.6 mg/dL (8.4-10.2); Carbon Dioxide 26 mmol/L (22-29); Chloride 106 mmol/L (96-108); Creatinine Clr Calc Pharmacy 52.3; Estimated Glomerular Filt Rate 45; Ethanol < 10 mg/dL; Glucose Random 103 mg/dL (60-115); Potassium 4.5 mmol/L (3.3-5.1); Salicylate < 5.0 mg/dL (15-30); Sodium 141 mmol/L (135-145); Total Protein 7.6 g/dL (6.5-8.0)
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
[2024-04-08 15:22] LABS: Appearance Urine Clear; Color Urine Dark Yellow; Glucose Urine UA Negative (Negative); Leukocyte Esterase Urine Trace (Negative); Nitrite Urine Negative (Negative); PH 5.5 (5.0-9.0); Specific Gravity - Urine 1.025 (1.005-1.025); UMIC TRIGGER UA YES; Urine Blood Negative (Negative); Urine Ketones Trace mg/dL (Negative); Urine Protein Trace mg/dL (Neg-Trace)
[2024-04-08 15:29] LABS: Bacteria Urine None Seen (None Seen); RBC Urine 0-2 /HPF (0-2); WBC Urine 0-5 /HPF (0-5)
[2024-04-08 15:31] LABS: Amphetamine Screen Urine Not Detected (Not Detect); Barbiturates, Urine Not Detected (Not Detect); Benzodiazepines Screen Urine Not Detected (Not Detect); Buprenorphine Scr Not Detected (Not Detect); Cannabinoid Screen Urine Not Detected (Not Detect); Cocaine Screen Urine Not Detected (Not Detect); Fentanyl, urine Not Detected (Not Detect); Methadone Screen, Urine Not Detected (Not Detect); Opiate Screen Urine Not Detected (Not Detect); Oxycodone Screen Urine Not Detected (Not Detect); Phencyclidine Screen Urine Not Detected (Not Detect)
[2024-04-08] MEDS: Ibuprofen 800 MG TABLET PO (21:15)
[2024-04-08] MEDS: Melatonin 3 MG TABLET 6 MG PO (21:15)
[2024-04-08] MEDS: Acetaminophen 325 MG TABLET 650 MG PO (21:35)
[2024-04-08] MEDS: diphenhydrAMINE HCL 25 MG CAPSULE 50 MG PO (21:36)
--- NOTE | 2024-04-09 | ECG_ITS ---
Test Reason : CHECK QTC PROLONGATION Blood Pressure : / mmHG Vent. Rate : 067 BPM Atrial Rate : 067 BPM P-R Int : 166 ms QRS Dur : 106 ms QT Int : 386 ms P-R-T Axes : 057 -58 026 degrees QTc Int : 407 ms Normal sinus rhythm Left anterior fascicular block Moderate voltage criteria for LVH, may be normal variant ( R in aVL , [place] product ) Abnormal ECG No previous ECGs available Referred By: Tatiana Bridges Electronically Signed By:EWA STEVENS MD
[2024-04-09 06:00] VITALS: BP 125/94; PULSE 67; RESP 16; TEMP 36.3; O2SAT 98
--- NOTE | 2024-04-09 06:51 | PC.NURSE ---
Patient slept through the night, no distress observed/reported, disposition per care team pending psych consult, no behavior and safety concerns, will continue to monitor
[2024-04-09] MEDS: lisinopriL 20 MG TABLET PO (08:04)
[2024-04-09] MEDS: Ibuprofen 800 MG TABLET PO (08:04)
[2024-04-09] MEDS: amLODIPine Besylate 5 MG TABLET PO (08:04)
[2024-04-09] MEDS: Acetaminophen 325 MG TABLET 650 MG PO ×3 (08:05→20:48)
[2024-04-09] MEDS: hydroCHLOROthiazide 12.5 MG TABLET PO (08:05)
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
[2024-04-09 12:35] LABS: Alanine Aminotransferase 31 U/L (0-40); Albumin Level 4.4 g/dL (3.5-5.0); Alkaline Phosphatase 56 U/L (39-117); Anion Gap 12 (12-20); Aspartate Amino Transferase 25 U/L (5-37); Bilirubin Total 0.4 mg/dL (0.0-1.0); Blood Urea Nitrogen 33 mg/dL (9-16); Carbon Dioxide 29 mmol/L (22-29); Chloride 102 mmol/L (96-108); Creatinine Clr Calc Pharmacy 66.2; Estimated Glomerular Filt Rate 60; Glucose Random 101 mg/dL (60-115); Potassium 4.7 mmol/L (3.3-5.1); Sodium 138 mmol/L (135-145)
[2024-04-09 12:42] LABS: Cholesterol 201 mg/dL (<200); HDL Cholesterol 33 mg/dL (>40); LDL Cholesterol Calculated 130 mg/dL (<100); Triglycerides 192 mg/dL (<150)
[2024-04-09 12:43] LABS: Parathyroid Hormone Intact 60.9 pg/mL (8.7-77.1)
[2024-04-09 12:57] LABS: TSH reflex Free T4 0.33 uIU/mL (0.32-4.0)
[2024-04-09 13:10] LABS: Folate 15.5 ng/mL (> or = 4.0); Vitamin B12 888 pg/mL (200-900)
[2024-04-09 13:39] VITALS: BP 142/87; PULSE 69; RESP 18; TEMP 37; O2SAT 100
[2024-04-09 14:00] VITALS: BP 142/86; PULSE 65; RESP 16; TEMP 36.8; O2SAT 99
--- NOTE | 2024-04-09 14:33 | PC.NURSE ---
MOCA cognitive assessment administered this day. Pts score 16/30 is indicative of moderate cognitive impairment present.
--- NOTE | 2024-04-09 14:35 | PHA.MEDREC ---
Addendum entered by Jahaira Padilla [facility] 04/09/24 15:02: Reviewed by [facility] Addendum entered by Sowmya Spencer 04/09/24 14:51: Spoke with nurse in [facility] pod and patient confirmed with them that he is taking Melatonin 5mg tabs 1 @bedtime. Original Note: Pharmacy Consult ? Medication Reconciliation Pharmacy reviewed med rec done by nursing. Claims match what is confirmed on med rec.
[2024-04-09] MEDS: Donepezil HCl 5 MG TABLET PO (20:48)
[2024-04-09] MEDS: Melatonin 3 MG TABLET 6 MG PO (20:48)
[2024-04-10 06:18] VITALS: BP 122/77; PULSE 74; RESP 17; TEMP 36.5; O2SAT 100
--- NOTE | 2024-04-10 07:44 | PC.NURSE ---
Assumed care of patient at 0645, patient appears to be in no apparent distress this am, ate breakfast, ambulated around pof without issue. patient no resting on bed in 6. Patient aware of plan of care for apoorva-psych bedsearch
[2024-04-10] MEDS: hydroCHLOROthiazide 12.5 MG TABLET PO (08:34)
[2024-04-10 08:35] VITALS: BP 116/72
[2024-04-10] MEDS: amLODIPine Besylate 5 MG TABLET PO (08:35)
[2024-04-10] MEDS: Acetaminophen 325 MG TABLET 650 MG PO ×2 (08:35→20:22)
[2024-04-10 08:37] VITALS: BP 116/72; PULSE 72; RESP 16; TEMP 36.7; O2SAT 99
[2024-04-10 12:49] VITALS: BP 137/79; PULSE 69; RESP 18; TEMP 36.1; O2SAT 97
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
[2024-04-10 19:45] VITALS: BP 117/74; PULSE 70; RESP 18; TEMP 35.9; O2SAT 98
[2024-04-10] MEDS: Melatonin 3 MG TABLET 6 MG PO (20:23)
[2024-04-10] MEDS: Ibuprofen 800 MG TABLET PO (20:23)
--- NOTE | 2024-04-10 20:26 | PC.NURSE ---
Russ refused Donepezil at bedtime, I don't take that and I don't need that.
[2024-04-11 08:00] VITALS: BP 116/73; PULSE 67; RESP 18; TEMP 37.1; O2SAT 98
[2024-04-11] MEDS: Acetaminophen 325 MG TABLET 650 MG PO ×2 (08:06→20:45)
[2024-04-11] MEDS: hydroCHLOROthiazide 12.5 MG TABLET PO (08:06)
[2024-04-11] MEDS: lisinopriL 20 MG TABLET PO (08:06)
[2024-04-11] MEDS: Ibuprofen 800 MG TABLET PO ×2 (08:07→20:53)
[2024-04-11] MEDS: amLODIPine Besylate 5 MG TABLET PO (08:07)
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
[2024-04-11 20:00] VITALS: BP 128/76; PULSE 72; RESP 18; TEMP 36.6; O2SAT 97
[2024-04-11] MEDS: Melatonin 3 MG TABLET 6 MG PO (20:46)
[2024-04-12 08:17] VITALS: BP 126/80; PULSE 72; RESP 17; TEMP 36; O2SAT 99
[2024-04-12] MEDS: Acetaminophen 325 MG TABLET 650 MG PO ×2 (08:25→20:26)
[2024-04-12] MEDS: lisinopriL 20 MG TABLET PO (08:26)
[2024-04-12] MEDS: hydroCHLOROthiazide 12.5 MG TABLET PO (08:26)
[2024-04-12] MEDS: amLODIPine Besylate 5 MG TABLET PO (08:26)
[2024-04-12] MEDS: Ibuprofen 800 MG TABLET PO ×2 (08:26→20:27)
[2024-04-12 08:32] LABS: Alanine Aminotransferase 27 U/L (0-40); Albumin Level 4.6 g/dL (3.5-5.0); Alkaline Phosphatase 56 U/L (39-117); Anion Gap 15 (12-20); Aspartate Amino Transferase 21 U/L (5-37); Bilirubin Total 0.5 mg/dL (0.0-1.0); Blood Urea Nitrogen 35 mg/dL (9-16); Calcium 10.6 mg/dL (8.4-10.2); Carbon Dioxide 26 mmol/L (22-29); Chloride 104 mmol/L (96-108); Cholesterol 202 mg/dL (<200); Creatinine Clr Calc Pharmacy 68.4; Estimated Glomerular Filt Rate > 60; Gamma Glutamyl Transpeptidase 28 U/L (11-51); Glucose Fasting 96 mg/dL (60-99); HDL Cholesterol 37 mg/dL (>40); LDL Cholesterol Calculated 134 mg/dL (<100); Potassium 4.5 mmol/L (3.3-5.1); Sodium 140 mmol/L (135-145); Total Protein 7.4 g/dL (6.5-8.0); Triglycerides 157 mg/dL (<150)
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
[2024-04-12 20:00] VITALS: BP 119/77; PULSE 73; RESP 16; TEMP 36.6; O2SAT 98
[2024-04-12] MEDS: Melatonin 3 MG TABLET 6 MG PO (20:26)
[2024-04-13 07:58] VITALS: BP 110/77; PULSE 81; RESP 17; TEMP 36; O2SAT 99
[2024-04-13] MEDS: amLODIPine Besylate 5 MG TABLET PO (07:58)
[2024-04-13] MEDS: hydroCHLOROthiazide 12.5 MG TABLET PO (07:59)
[2024-04-13] MEDS: Ibuprofen 800 MG TABLET PO ×2 (07:59→20:45)
[2024-04-13] MEDS: Acetaminophen 325 MG TABLET 650 MG PO ×2 (07:59→20:45)
[2024-04-13] MEDS: lisinopriL 20 MG TABLET PO (07:59)
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
[2024-04-13 20:00] VITALS: BP 112/72; PULSE 72; RESP 16; TEMP 37.1; O2SAT 99
[2024-04-13] MEDS: Melatonin 3 MG TABLET 6 MG PO (20:43)
[2024-04-14 08:00] VITALS: BP 113/73; PULSE 71; RESP 18; TEMP 36.4; O2SAT 98
[2024-04-14] MEDS: amLODIPine Besylate 5 MG TABLET PO (08:05)
[2024-04-14] MEDS: lisinopriL 20 MG TABLET PO (08:05)
[2024-04-14] MEDS: hydroCHLOROthiazide 12.5 MG TABLET PO (08:06)
[2024-04-14] MEDS: Acetaminophen 325 MG TABLET 650 MG PO ×2 (08:09→20:22)
[2024-04-14] MEDS: Ibuprofen 800 MG TABLET PO ×2 (08:09→20:21)
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
[2024-04-14 20:00] VITALS: BP 121/76; PULSE 70; RESP 18; TEMP 36.6; O2SAT 98
[2024-04-14] MEDS: Melatonin 3 MG TABLET 6 MG PO (20:22)
[2024-04-15 06:06] VITALS: BP 122/73; PULSE 74; RESP 18; TEMP 36.3; O2SAT 99
[2024-04-15] MEDS: hydroCHLOROthiazide 12.5 MG TABLET PO (06:08)
[2024-04-15] MEDS: lisinopriL 20 MG TABLET PO (06:09)
[2024-04-15] MEDS: amLODIPine Besylate 5 MG TABLET PO (06:09)
[2024-04-15] MEDS: Ibuprofen 800 MG TABLET PO (06:15)
[2024-04-15] MEDS: Acetaminophen 325 MG TABLET 650 MG PO (06:16)
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
--- NOTE | 2024-04-15 10:51 | PC.NURSE ---
Pt. alert and oriented to person and place. Continues to deny cognitive decline and need for treatment. Wishes to be discharged. Discharge instructions and medications reviewed with pt., who continues to report he will not take the Depakote or Aricept. Pt. escorted off unit to [facility] at 10:44 accompanied by this RN and security.
== END 2024-04-15 10:44 | disposition left against medical advice (07) | DRG 42 ==
LOC: HO.ED 14:22 → HO.PGERI 04-10 11:56
PROVIDERS: Physician Assistant Medical; Social Worker; Admitting Provider Psychiatry & Neurology Psychiatry; Emergency Provider Emergency Medicine; PCP Internal Medicine; Visit Provider Psychiatry & Neurology Psychiatry
DX: G30.9 Alzheimer's disease, unspecified (principal); F02.818 Dementia in other diseases classified elsewhere, unspecified severity, with other behavioral disturbance; I10 Essential (primary) hypertension; Z20.822 Contact with and (suspected) exposure to COVID-19; Z79.899 Other long term (current) drug therapy
CPT/HCPCS: 36415; 70551; 76377; 80053; 80061; 80143; 80179; 80307; 81001; 82607; 82746; 82977; 83970; 84443; 85025; 87635; 93005; 97165; 99285; S9485

== ENCOUNTER → 2024-04-08 14:17 | Outpatient (BNV) | payer OTHER, SELFPAY | PROVIDERS: Emergency Provider Emergency Medicine; PCP Internal Medicine; Visit Provider Social Worker | DX: F03.90 Unspecified dementia, unspecified severity, without behavioral disturbance, psychotic disturbance, mood disturbance, and anxiety (principal) | CPT/HCPCS: 99231; 99232 ==

== ENCOUNTER → 2024-04-09 12:22 | Outpatient (BNV) | payer MEDICAID, SELFPAY | PROVIDERS: Emergency Provider Emergency Medicine; PCP Internal Medicine; Visit Provider Internal Medicine Cardiovascular Disease | DX: R94.31 Abnormal electrocardiogram [ECG] [EKG] (principal) | CPT/HCPCS: 93010 ==

== ENCOUNTER 2024-08-22 11:14 | Emergency (ER) | payer MEDICAID, SELFPAY ==
--- NOTE | 2024-08-22 11:30 | ECG_ITS ---
Test Reason : check qt Blood Pressure : */* mmHG Vent. Rate : 65 BPM Atrial Rate : 65 BPM P-R Int : 162 ms QRS Dur : 102 ms QT Int : 384 ms P-R-T Axes : 65 -54 33 degrees QTcB Int : 399 ms Normal sinus rhythm Left axis deviation Incomplete right bundle branch block Abnormal ECG When compared with ECG of 09-Apr-2024 12:22, No significant change was found Referred By: Alina Toledo Electronically Signed By: Damian Quintero
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
[2024-08-22 11:36] VITALS: BP 140/78; PULSE 80; O2SAT 97; BMI 20.1
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
--- NOTE | 2024-08-22 11:39 | PC.NURSE ---
Per Chantel: Assessed in community by [facility]. [facility] reports decreased sleep x few days, not med compliant. increased aggitation/confusion. baseline dementia. Is inpatient bedsearch.
[2024-08-22 11:58] VITALS: BP 165/70; PULSE 91; RESP 18; TEMP 37; O2SAT 97
--- NOTE | 2024-08-22 12:01 | PC.NURSE ---
Pt arrived to pod in ED stretcher, agitated and uncooperative (wouldn't give name). Was able to cooperate and change release manager then give blood/ VS in room. Remains calm but declining PO meds. Pt is only oriented to person.
[2024-08-22 12:06] LABS: MANUAL DIFF FLAG NO
[2024-08-22 12:07] LABS: Basophils Absolute Auto 0.1 X10*3/uL (0.0-0.2); Basophils Percent Auto 0.7 % (0-2); Eosinophils Absolute Auto 0.1 X10*3/uL (0.0-0.4); Eosinophils Percent Auto 0.7 % (0-4); Hematocrit 30.2 % (42.0-52.0); Hemoglobin 10.2 g/dl (14.0-18.0); Imm Gran Abs Auto 0.02 X10*3/uL (0.00-0.03); Imm Gran Pct Auto 0.2 % (0.0-0.4); Lymphocytes Absolute Auto 2.5 X10*3/uL (1.2-4.9); Lymphocytes Percent Auto 31.2 % (20-40); Mean Corpuscular HGB Conc 33.8 g/dl (31.0-36.0); Mean Corpuscular Hemoglobin 26.5 pg (27.0-33.0); Mean Corpuscular Volume 78.4 fL (80.0-98.0); Mean Platelet Volume 9.7 fL (9.4-12.4); Monocytes Absolute Auto 0.5 X10*3/uL (0.1-1.2); Monocytes Percent Auto 5.7 % (2-11); Neutrophils Absolute Auto 4.9 x10*3/uL (2.0-8.3); Neutrophils Percent Auto 61.5 % (45-73); Platelet Count 290 X10*3/uL (160-400); Red Blood Count 3.85 X10*6/uL (4.60-5.80); Red Cell Distribution Width 12.6 % (11.0-16.0)
[2024-08-22 12:08] LABS: Appearance Urine Clear; Color Urine Dark Yellow; Glucose Urine UA Negative (Negative); Leukocyte Esterase Urine Negative (Negative); Nitrite Urine Negative (Negative); PH 6.5 (5.0-9.0); Specific Gravity - Urine 1.025 (1.005-1.025); Urine Blood Negative (Negative); Urine Ketones Trace mg/dL (Negative); Urine Protein Negative (Neg-Trace)
[2024-08-22 12:17] LABS: Amphetamine Screen Urine Not Detected (Not Detect); Barbiturates, Urine Not Detected (Not Detect); Benzodiazepines Screen Urine Not Detected (Not Detect); Buprenorphine Scr Not Detected (Not Detect); Cannabinoid Screen Urine Not Detected (Not Detect); Cocaine Screen Urine Not Detected (Not Detect); Fentanyl, urine Not Detected (Not Detect); Methadone Screen, Urine Not Detected (Not Detect); Opiate Screen Urine Not Detected (Not Detect); Oxycodone Screen Urine Not Detected (Not Detect); Phencyclidine Screen Urine Not Detected (Not Detect)
[2024-08-22 12:23] LABS: Acetaminophen LAB < 3 mcg/mL (<30); Alanine Aminotransferase 30 U/L (0-40); Albumin Level 4.5 g/dL (3.5-5.0); Alkaline Phosphatase 57 U/L (39-117); Anion Gap 13 (12-20); Aspartate Amino Transferase 33 U/L (5-37); Bilirubin Total 0.4 mg/dL (0.0-1.0); Blood Urea Nitrogen 31 mg/dL (9-16); Calcium 9.8 mg/dL (8.4-10.2); Carbon Dioxide 24 mmol/L (22-29); Chloride 108 mmol/L (96-108); Creatinine Clr Calc Pharmacy 54.3; Estimated Glomerular Filt Rate 51; Ethanol < 10 mg/dL; Glucose Random 108 mg/dL (60-115); Potassium 3.9 mmol/L (3.3-5.1); Salicylate < 5.0 mg/dL (15-30); Sodium 141 mmol/L (135-145); Total Protein 7.7 g/dL (6.5-8.0)
[2024-08-22 13:06] LABS: Influenza A PCR NEGATIVE (Negative); Influenza B PCR NEGATIVE (Negative); Resp Syncy Virus RNA Qual PCR NEGATIVE (Negative); SARS COV2 PCR INHOUSE NEGATIVE (Negative)
--- NOTE | 2024-08-22 13:46 | PC.NURSE ---
IM never administered b/c patient has been cooperative and redirectable when needed.
--- NOTE | 2024-08-22 14:40 | PC.NURSE ---
escalating. security present. continues to refuse PRN meds.
--- NOTE | 2024-08-22 15:18 | PC.NURSE ---
calmer/ seems to accept that he is staying here. talking about taking PO meds at night.
[2024-08-22 15:50] VITALS: BP 125/78; PULSE 80; RESP 20; TEMP 37.1; O2SAT 99
[2024-08-22] MEDS: Acetaminophen 325 MG TABLET 650 MG PO (20:26)
[2024-08-22] MEDS: Ibuprofen 800 MG TABLET PO (20:27)
[2024-08-22] MEDS: Melatonin 3 MG TABLET 6 MG PO (20:27)
[2024-08-22] MEDS: Donepezil HCl 5 MG TABLET PO (20:27)
--- NOTE | 2024-08-23 03:42 | PC.NURSE ---
assumed care of pt, no apparent distress noted
[2024-08-23 05:35] VITALS: BP 128/79; PULSE 70; RESP 16; TEMP 37.3; O2SAT 98
[2024-08-23] MEDS: OLANZapine 10 MG VIAL IM (07:10)
[2024-08-23] MEDS: diphenhydrAMINE HCL 50 MG/ML VIAL IM (07:10)
[2024-08-23] MEDS: Acetaminophen 325 MG TABLET 650 MG PO (07:21)
[2024-08-23] MEDS: Ibuprofen 800 MG TABLET PO (07:21)
[2024-08-23] MEDS: amLODIPine Besylate 5 MG TABLET PO (07:21)
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
[2024-08-23] MEDS: lisinopriL 20 MG TABLET PO (07:37)
[2024-08-23] MEDS: hydroCHLOROthiazide 12.5 MG TABLET PO (07:37)
--- NOTE | 2024-08-23 11:15 | PHA.MEDREC ---
Pharmacy Consult ? Medication Reconciliation Pharmacy has completed the medication reconciliation. Reviewed med rec done by nursing (Sandrita).
[2024-08-23 13:12] VITALS: BP 142/86; PULSE 74; RESP 16; TEMP 36.9; O2SAT 97
== END 2024-08-23 12:13 | disposition other institution (70) ==
PROVIDERS: Physician Assistant Medical; Emergency Provider Emergency Medicine; PCP Internal Medicine
DX: F03.90 Unspecified dementia, unspecified severity, without behavioral disturbance, psychotic disturbance, mood disturbance, and anxiety (principal); R45.1 Restlessness and agitation; I45.10 Unspecified right bundle-branch block; I10 Essential (primary) hypertension; Z03.818 Encounter for observation for suspected exposure to other biological agents ruled out; Z87.891 Personal history of nicotine dependence; Z51.81 Encounter for therapeutic drug level monitoring; Z79.899 Other long term (current) drug therapy
CPT/HCPCS: 0241U; 36415; 80053; 80143; 80179; 80307; 81003; 85025; 93005; 96372; 99285; J1200; J2359

== ENCOUNTER → 2024-08-22 11:30 | Outpatient (BNV) | payer MEDICAID, SELFPAY | PROVIDERS: Emergency Provider Emergency Medicine; PCP Internal Medicine; Visit Provider Internal Medicine Cardiovascular Disease | DX: I45.10 Unspecified right bundle-branch block (principal) | CPT/HCPCS: 93010 ==